=== PATIENT | female | born 1985 | race Caucasian/White ===

== ENCOUNTER 2018-04-14 13:05 | Emergency (ER) | payer OTHER ==
[~2018-04-14] VITALS: Ht 170.2 cm; Wt 77.1 kg
[~2018-04-14 13:05] MED LIST: AMOX1TAB12 PO
== END 2018-04-14 22:23 | disposition home or self-care (01) ==
LOC: ER 13:05
DX: A60.00 Herpesviral infection of urogenital system, unspecified (principal); N39.0 Urinary tract infection, site not specified

== ENCOUNTER 2018-11-23 16:57 | Emergency (ER) | payer OTHER ==
[~2018-11-23] VITALS: Ht 170.2 cm; Wt 90.3 kg
== END 2018-11-23 19:22 | disposition home or self-care (01) ==
LOC: ER 16:57
DX: B02.9 Zoster without complications (principal)